=== PATIENT | male | born 1965 | race Caucasian/White ===

== ENCOUNTER → 2018-08-28 | Outpatient (CLI) | payer BC ==
--- NOTE | 2018-08-28 09:21 | RADIOLOGY IMAGING REPORT ---
[place] [facility] [place]: Yasmany Mosley : 1965 MR: [id number] V: [id number] EXAM DATE: ORDERING PHYSICIAN: CLARISSE DE DIOS TECHNOLOGIST: Location: [facility] Patient: Yasmany Mosley : 1965 Visit/Account:[id number] Date of Sevice: 08/28/2018 Right upper abdomen ultrasound. HISTORY: Right upper quadrant pain for several months. COMPARISON: None. The liver measures 12.7 cm in sagittal length. The liver parenchyma is slightly heterogeneous. The liver is free of focal defects. The surface of the liver is smooth. The portal vein is patent. No int ra or extrahepatic biliary dilatation. The gallbladder is unremarkable. The sonographic Russell's sign is negative. The pancreas is unremarkable. The pancreatic tail is partially obscured by bowel gas. The right kidney is normal in size. The right kidney is slightly lobulated. No hydronephrosis. No ascites. Portions of the abdominal aorta and inferior vena cava are obscured. The spleen and left kid judith were not included. The common bile duct measures 2.4 mm in greatest AP diameter. IMPRESSION: Mild fatty infiltration of the liver. Otherwise negative. Report Dictated By: Pedrito Newman MD at 08/28/2018 9:15 AM Report E-Signed By: Pedrito Newman MD at 08/28/2018 9:16 AM WSN:[email or web address]
== END ==
LOC: US 00:56
PROVIDERS: ATTEND Family Medicine
DX: K76.0 Fatty (change of) liver, not elsewhere classified (principal)
CPT/HCPCS: 76705

== ENCOUNTER → 2018-09-15 | Outpatient (CLI) | payer BC ==
[~2018-09-15] MED LIST: SINCALIDE 5 MCG VIAL INJ ONE; WATER FOR INJ,STERILE 20 ML 20 ML ONE
--- NOTE | 2018-09-15 09:57 | RADIOLOGY IMAGING REPORT ---
FACILITY: [facility] - [place] PATIENT NAME: Yasmany Mosley : 1965 MR: [id number] V: [id number] EXAM DATE: ORDERING PHYSICIAN: CLARISSE DE DIOS TECHNOLOGIST: Location: [facility] - [place] Patient: Yasmany Mosley : 1965 Visit/Account:[id number] Date of Sevice: 09/15/2018 NM HIDA SCAN HISTORY: Right upper quadrant pain TECHNIQUE: 5.8 mCi Tc99m Hepatolite was injected intravenously. Multiple sequential gamma camera florin ges of the abdomen were obtained for 20 minutes. At that time, Kinevac was injected intravenously and an additional 30 minutes of gamma camera imaging data was acquired. A computer-generated region of i nterest was placed around the gallbladder and time-activity curve for the gallbladder was derived. Th e gallbladder ejection fraction was calculated. COMPARISON: Gallbladder ultrasound August 28, 2018 FINDINGS: Liver uptake and excretion: Unremarkable. Time to appearance: Bile ducts: 7 minutes. Gallbladder: 4 minutes. Duodenum: 15 minutes. Duodenal-gastric reflux / extravasation: None. Post IV Kinevac: Normal and prompt contraction of the gallbladder. Patient symptoms: None reported Ejection fraction = 95% (normal range >35%). IMPRESSION: Normal gallbladder ejection fraction of 95% Report Dictated By: Flores Purvis MD at 09/15/2018 9:50 AM Report E-Signed By: Flores Purvis MD at 09/15/2018 9:52 AM WSN:[email or web address]
== END ==
LOC: NUC 09-12 00:31
PROVIDERS: ATTEND Family Medicine
DX: R10.11 Right upper quadrant pain (principal)
CPT/HCPCS: 78226; A9537; J2805